=== PATIENT | female | born 1990 | race Caucasian/White ===

== ENCOUNTER 2025-05-20 15:11 | Emergency (ER) | payer OTHER ==
[~2025-05-20] VITALS: Ht 165.1 cm; Wt 121.7 kg
[2025-05-20] MEDS ORDERED: HYDR200T46 PO (15:36)
[2025-05-20] MEDS ORDERED: LISI10TA22 PO (15:36)
[2025-05-20 19:23] VITALS: BP 167/92; TEMP 98; O2SAT 100
== END 2025-05-20 19:26 | disposition home or self-care (01) ==
LOC: M ED 15:11 → EDBD 15:11 → M ED 19:26
DX: Z04.1 Encounter for examination and observation following transport accident (principal); I10 Essential (primary) hypertension; M32.9 Systemic lupus erythematosus, unspecified; Z88.2 Allergy status to sulfonamides; Z88.1 Allergy status to other antibiotic agents; Z88.8 Allergy status to other drugs, medicaments and biological substances; Z91.013 Allergy to seafood